=== PATIENT | male | born 1935 | race Caucasian/White ===

== ENCOUNTER 2021-04-17 15:53 | Observation (INO) | payer MEDICARE, BC ==
[2021-04-17] MEDS ORDERED: Sodium Chloride 0.9% 10 ML Syringe FLUSH PRN (16:20)
[2021-04-17 17:00] LABS: ANION GAP 7.7 meq/L (7-15)
--- NOTE | 2021-04-17 17:18 | EDM.PDOC ---
ED HPI GENERAL MEDICAL PROBLEM - General Chief Complaint: Syncope Stated Complaint: SYNCOPE Time Seen by Provider: 04/17/21 16:15 Source of Information: Reports: Patient History Limitations: Reports: No Limitations - History of Present Illness INITIAL COMMENTS - FREE TEXT/NARRATIVE: Patient left the house at 1 pm to go for a walk and decided to do some jogging. He states he did not have chest pain, or feel dizzy, but suddenly passed out. struck the back of his head head and was unconscious. He can to, felt nauseated and vomiting. decided to walk home, took him quite a bit to return home due to not feeling well. Is on plavix. Has a history of cardiac stent x 2. Is feeling better other than feeling weak. states he has been walking fine and making sense. made it home by 15:00. Has had his covid vaccination. Not around any sick contacts. no recent travel or illness. Has been eating and drinking normally. tetanus is up to date. Onset: Today, Sudden Duration: Minutes:, Resolved Prior to Arrival Associated Symptoms: Reports: Nausea/Vomiting, Syncope, Weakness Chest Pain Score (Numeric/FACES): 1 - Related Data Allergies Allergy/AdvReac Type Severity Reaction Status Date / Time No Known Allergies Allergy Verified 04/17/21 15:59 Home Meds: Home Meds Aspirin [Aspirin EC] 81 mg PO DAILY 04/17/21 [History] Clopidogrel [Plavix] 75 mg PO DAILY 04/17/21 [History] Ibuprofen/Diphenhydramine Cit [Ibuprofen PM Caplet] 1 tab PO BEDTIME 04/17/21 [History] Isosorbide Mononitrate [Isosorbide Mononitrate ER] 60 mg PO DAILY 04/17/21 [History] Losartan [Cozaar] 100 mg PO DAILY 04/17/21 [History] Non-Formulary Medication [NF Drug] 1 each PO BEDTIME 04/17/21 [History] Past Medical History HEENT History: Reports: Impaired Vision Cardiovascular History: Reports: Hypertension, Stents Musculoskeletal History: Reports: Arthritis, Back Pain, Chronic Psychiatric History: Reports: None - Past Surgical History Musculoskeletal Surgical History: Reports: Other (See Below) Other Musculoskeletal Surgeries/Procedures:: back surgery Social & Family History - Tobacco Use Tobacco Use Status *Q: Former Tobacco User Used Tobacco, but Quit: Yes Month/Year Tobacco Last Used: 1960 - Recreational Drug Use Recreational Drug Use: No Drug Use in Last 12 Months: No ED ROS GENERAL - Review of Systems Review Of Systems: See Below Constitutional: Reports: Weakness HEENT: Reports: No Symptoms. Denies: Ear Discharge, Eye Discharge, Nose Pain, Sinus Problem, Vertigo Respiratory: Reports: No Symptoms. Denies: Shortness of Breath, Wheezing, Cough Cardiovascular: Reports: Syncope. Denies: Chest Pain, Dyspnea on Exertion, Edema, Lightheadedness, Palpitations GI/Abdominal: Reports: Vomiting (once after the syncope. ). Denies: Abdominal Pain, Diarrhea : Reports: No Symptoms. Denies: Dysuria, Flank Pain, Frequency Skin: Reports: Wound (upper back abrasion) Neurological: Reports: Syncope, Weakness - Physical Exam Exam: See Below Exam Limited By: No Limitations General Appearance: Alert, WD/WN, No Apparent Distress Eye Exam: Bilateral Eye: EOMI, Normal Inspection, PERRL Ears: Normal External Exam, Normal Canal, Normal TMs Nose: Normal Inspection, Normal Mucosa, No Blood Throat/Mouth: Normal Inspection, Normal Lips, Normal Teeth, Normal Oropharynx, Normal Voice, No Airway Compromise Head Exam: Scalp Abrasions, Scalp Tenderness Neck: Normal Inspection, Supple, Non-Tender, Full Range of Motion. No: Tender Midline Respiratory/Chest: No Respiratory Distress, Lungs Clear Cardiovascular: Normal Peripheral Pulses, Bradycardia GI/Abdominal: Normal Bowel Sounds, Soft, Non-Tender Neuro Exam (Abbreviated): Alert, Oriented, CN II-XII Intact, Normal Cognition, No Motor/Sensory Deficits, Other (normal finger to nose with eyes closed. normal ZAC, normal oppostion of the thumb to all fingers bilaterally. 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 Normal heel to grover. NOrmal speech. ) Back Exam: Other (two abrasions on the upper back) Extremities: No Pedal Edema Psychiatric: Normal Affect, Normal Mood #1 Interpretation EKG Date: 04/17/21 Time: 16:36 Rhythm: NSR Rate (Beats/Min): 57 (bradycardia) [place]: Normal P-Wave: Present ST-T: Normal QT: Normal Comparison: NA - No Prior EKG Course - Vital Signs Last Recorded V/S: Last Vital Signs Temp 36.3 C 04/17/21 15:54 Pulse 64 04/17/21 15:54 Resp 20 04/17/21 15:54 BP 130/72 04/17/21 15:54 Pulse Ox 96 04/17/21 15:54 - Orders/Labs/Meds Orders: Active Orders 24 hr Category Date Time Status Admission Status [Patient Status] [ADT] Routine ADT 04/17/21 17:33 Ordered EKG Documentation Completion [RC] ASDIRECTED Care 04/17/21 16:19 Active Peripheral IV Care [RC] . DIRECTED Care 04/17/21 16:20 Active Cervical Spine wo Cont [CT] Stat Exams 04/17/21 16:18 Taken Chest 2V [CR] Stat Exams 04/17/21 16:18 Taken Head wo Cont [CT] Stat Exams 04/17/21 16:18 Taken Sodium Chloride 0.9% [Saline Flush] Med 04/17/21 16:20 Active 10 ml FLUSH ASDIRECTED PRN Peripheral IV Insertion Adult [OM.PC] Routine Oth 04/17/21 16:20 Ordered EKG 12 Lead [EK] Stat Ther 04/17/21 16:18 Ordered Medication Orders Sodium Chloride (Sodium Chloride 0.9% 10 Ml Syringe) 10 ml FLUSH ASDIRECTED PRN PRN Reason: Keep Vein Open Labs: Laboratory Tests 04/17/21 04/17/21 04/17/21 Range/Units 16:20 16:32 16:32 WBC 9.8 (4.0-10.2) K/uL RBC 4.41 (4.33-5.41) M/uL Hgb 13.6 (13.1-16.8) g/dL Hct 40.7 (39.0-49.0) % MCV 92.3 (84.0-98.0) fL MCH 30.8 (28.2-33.3) pg MCHC 33.4 (31.7-36.0) g/dL RDW 13.6 (11.2-14.1) % Plt Count 216 (150-350) K/uL Neut % (Auto) 79.6 (45.0-80.0) % Lymph % (Auto) 11.2 (10.0-50.0) % [place] % (Auto) 8.3 (2.0-14.0) % Eos % (Auto) 0.7 (0.0-5.0) % Baso % (Auto) 0.2 (0.0-2.0) % Neut # (Auto) 7.82 H (1.40-7.00) K/uL Lymph # (Auto) 1.10 (0.50-3.50) K/uL [place] # (Auto) 0.82 (0.00-1.00) K/uL Eos # (Auto) 0.07 (0.00-0.50) K/uL Baso # (Auto) 0.02 (0.00-0.20) K/uL D-Dimer, Quantitative 178 (0-400) ng/mL Sodium (136-145) mmol/L Potassium (3.5-5.1) mmol/L Chloride (98-107) mmol/L Carbon Dioxide (21.0-32.0) mmol/L Anion Gap (7-15) meq/L BUN (7-18) mg/dL Creatinine (0.51-1.17) mg/dL Est Cr Clr Drug Dosing mL/min Estimated GFR (MDRD) mL/min Glucose (70-99) mg/dL Calcium (8.5-10.1) mg/dL Total Bilirubin (0.2-1.0) mg/dL AST (15-37) U/L ALT (12-78) U/L Alkaline Phosphatase (46-116) IU/L Troponin I High Sens (<=76) ng/L Total Protein (6.4-8.2) g/dL Albumin (3.4-5.0) g/dL SARS-CoV-2 Ag (Rapid) Negative (NEGATIVE) 04/17/21 Range/Units 16:32 WBC (4.0-10.2) K/uL RBC (4.33-5.41) M/uL Hgb (13.1-16.8) g/dL Hct (39.0-49.0) % MCV (84.0-98.0) fL MCH (28.2-33.3) pg MCHC (31.7-36.0) g/dL RDW (11.2-14.1) % Plt Count (150-350) K/uL Neut % (Auto) (45.0-80.0) % Lymph % (Auto) (10.0-50.0) % [place] % (Auto) (2.0-14.0) % Eos % (Auto) (0.0-5.0) % Baso % (Auto) (0.0-2.0) % Neut # (Auto) (1.40-7.00) K/uL Lymph # (Auto) (0.50-3.50) K/uL [place] # (Auto) (0.00-1.00) K/uL Eos # (Auto) (0.00-0.50) K/uL Baso # (Auto) (0.00-0.20) K/uL D-Dimer, Quantitative (0-400) ng/mL Sodium 141 (136-145) mmol/L Potassium 4.3 (3.5-5.1) mmol/L Chloride 106 (98-107) mmol/L Carbon Dioxide 27.3 (21.0-32.0) mmol/L Anion Gap 7.7 (7-15) meq/L BUN 19 H (7-18) mg/dL Creatinine 1.21 H (0.51-1.17) mg/dL Est Cr Clr Drug Dosing 50.77 mL/min Estimated GFR (MDRD) 57 mL/min Glucose 123 H (70-99) mg/dL Calcium 8.4 L (8.5-10.1) mg/dL Total Bilirubin 1.0 (0.2-1.0) mg/dL AST 20 (15-37) U/L ALT 30 (12-78) U/L Alkaline Phosphatase 57 (46-116) IU/L Troponin I High Sens 26 (<=76) ng/L Total Protein 6.7 (6.4-8.2) g/dL Albumin 4.0 (3.4-5.0) g/dL SARS-CoV-2 Ag (Rapid) (NEGATIVE) Meds: Medications Generic Name Dose Route Start Last Admin Trade Name Freq PRN Reason Stop Dose Admin Sodium Chloride 10 ml 04/17/21 16:20 Sodium Chloride 0.9% 10 Ml Syringe FLUSH ASDIRECTED PRN Keep Vein Open Discontinued Medications Generic Name Dose Route Start Last Admin Trade Name Freq PRN Reason Stop Dose Admin Sodium Chloride 1,000 mls @ 999 mls/hr 04/17/21 16:20 Normal Saline IV 04/17/21 17:20 .BOLUS ONE - Radiology Interpretation Free Text/Narrative:: ct head without acute changes, ct c spine djd, 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 17:23. negative covid. troponin is negative. has an episode of bradycardia to [address]. awaiting ct results. Will offer to keep observation for cardiac monitoring for arrythmia, repeat troponin 04/17/21 17:35 Patient states he has had bradycardia in the past. Has had holter monitors, etc. None recently. usually has rate around 50. Has not had syncope without dizziness in the past, and has been years since syncope. Was not running or stressed at time of the incident. agrees to observation admission for neuro checks every 4, repeat troponin at 20:00 adn cardiac monitoring. he and his agree to this. Departure - Departure Time of Disposition: 17:32 Disposition: Refer to Observation Clinical Impression: Syncope - Discharge Information *PRESCRIPTION DRUG MONITORING PROGRAM REVIEWED*: Not Applicable *COPY OF PRESCRIPTION DRUG MONITORING REPORT IN PATIENT ERENDIRA: Not Applicable Referrals: PCP,None [Primary Care Provider] - Forms: ED Department Discharge Additional Instructions: use ER documentation as H & P for observation Sepsis Event Note (ED) - Evaluation Sepsis Screening Result: No Definite Risk - Focused Exam Vital Signs: Vital Signs Temp Pulse Resp BP Pulse Ox 04/17/21 15:54 36.3 C 64 20 130/72 96 - My Orders Last 24 Hours: My Active Orders 04/17/21 16:18 Cervical Spine wo Cont [CT] Stat Chest 2V [CR] Stat Head wo Cont [CT] Stat EKG 12 Lead [EK] Stat 04/17/21 16:19 EKG Documentation Completion [RC] ASDIRECTED 04/17/21 16:20 Peripheral IV Care [RC] . DIRECTED Sodium Chloride 0.9% [Saline Flush] 10 ml FLUSH ASDIRECTED PRN Peripheral IV Insertion Adult [OM.PC] Routine 04/17/21 17:33 Admission Status [Patient Status] [ADT] Routine - Assessment/Plan Last 24 Hours: My Active Orders 04/17/21 16:18 Cervical Spine wo Cont [CT] Stat Chest 2V [CR] Stat Head wo Cont [CT] Stat EKG 12 Lead [EK] Stat 04/17/21 16:19 EKG Documentation Completion [RC] ASDIRECTED 04/17/21 16:20 Peripheral IV Care [RC] . DIRECTED Sodium Chloride 0.9% [Saline Flush] 10 ml FLUSH ASDIRECTED PRN Peripheral IV Insertion Adult [OM.PC] Routine 04/17/21 17:33 Admission Status [Patient Status] [ADT] Routine
[2021-04-17] MEDS ORDERED: Ondansetron 4 MG Tab.DIS PO PRN (18:17)
[2021-04-17] MEDS ORDERED: Acetaminophen 325 MG Tab PO PRN (18:17)
[2021-04-17] MEDS: Sodium Chloride 0.9% 1,000 ML IV ONE (18:34)
[2021-04-17] MEDS ORDERED: [UNRECOGNIZED DRUG - OTHER] PO SCH (20:00)
[2021-04-17] MEDS ORDERED: DIPHENHYDRAMINE PO SCH (20:00)
[2021-04-17] MEDS ORDERED: IBUPROFEN PO SCH (20:00)
[2021-04-17] MEDS: Gabapentin 300 MG Cap PO ONE (22:32)
[2021-04-18] MEDS: Clopidogrel 75 MG Tab PO SCH (07:15)
[2021-04-18] MEDS: Aspirin 81 MG Tab.EC PO SCH (07:15)
[2021-04-18] MEDS: Isosorbide Mononitrate 60 MG Tab.ER PO SCH (07:15)
--- NOTE | 2021-04-18 07:43 | PCM.PN ---
- General Info Date of Service: 04/18/21 Admission Dx/Problem (Free Text): syncope Subjective Update: Patient presented to the Ed with a syncopal episode. He was evaluated in the Ed. No cause found. Kept overnight due to history of bradycardia. Walked the halls all evening at at brisk pace, no arrythmia, no pain no syncope. Slept well and was discussing discharge this morning when he had a non symptomatic 4 beat run of v tach. Concern for arrythmia causing his syncope yesterday. Sees cardiology at [place], last visit 06/2019. Note patient states he has been cutting his losartan in half for some time ( 50 mg daily). Feeling good this am. - Review of Systems General: Reports: No Symptoms HEENT: Reports: No Symptoms Pulmonary: Reports: No Symptoms Cardiovascular: Reports: No Symptoms Gastrointestinal: Reports: No Symptoms Genitourinary: Reports: No Symptoms Musculoskeletal: Reports: No Symptoms Skin: Reports: No Symptoms Neurological: Reports: No Symptoms Psychiatric: Reports: No Symptoms - Patient Data Vitals - Most Recent: Last Vital Signs Temp 35.8 C L 04/18/21 04:00 Pulse 51 L 04/18/21 04:00 Resp 18 04/18/21 04:00 BP 157/91 H 04/18/21 04:00 Pulse Ox 98 04/18/21 04:00 Weight - Most Recent: 88.451 kg I&O - Last 24 Hours: Intake & Output 04/17/21 04/18/21 04/18/21 22:59 06:59 14:59 Intake Total 1185 Balance 1185 Imaging Impressions - Last 24 Hours: Ct head no acute hemorrhage Ct c spine djd, no acute chest x-ray atelectasis decreased from previous. interpreted by radiology Lab Results Last 24 Hours: Laboratory Results - last 24 hr 04/17/21 04/17/21 04/17/21 Range/Units 16:20 16:32 16:32 WBC 9.8 (4.0-10.2) K/uL RBC 4.41 (4.33-5.41) M/uL Hgb 13.6 (13.1-16.8) g/dL Hct 40.7 (39.0-49.0) % MCV 92.3 (84.0-98.0) fL MCH 30.8 (28.2-33.3) pg MCHC 33.4 (31.7-36.0) g/dL RDW 13.6 (11.2-14.1) % Plt Count 216 (150-350) K/uL Neut % (Auto) 79.6 (45.0-80.0) % Lymph % (Auto) 11.2 (10.0-50.0) % [place] % (Auto) 8.3 (2.0-14.0) % Eos % (Auto) 0.7 (0.0-5.0) % Baso % (Auto) 0.2 (0.0-2.0) % Neut # (Auto) 7.82 H (1.40-7.00) K/uL Lymph # (Auto) 1.10 (0.50-3.50) K/uL [place] # (Auto) 0.82 (0.00-1.00) K/uL Eos # (Auto) 0.07 (0.00-0.50) K/uL Baso # (Auto) 0.02 (0.00-0.20) K/uL D-Dimer, Quantitative 178 (0-400) ng/mL Sodium (136-145) mmol/L Potassium (3.5-5.1) mmol/L Chloride (98-107) mmol/L Carbon Dioxide (21.0-32.0) mmol/L Anion Gap (7-15) meq/L BUN (7-18) mg/dL Creatinine (0.51-1.17) mg/dL Est Cr Clr Drug Dosing mL/min Estimated GFR (MDRD) mL/min Glucose (70-99) mg/dL Calcium (8.5-10.1) mg/dL Magnesium (1.8-2.4) mg/dL Total Bilirubin (0.2-1.0) mg/dL AST (15-37) U/L ALT (12-78) U/L Alkaline Phosphatase (46-116) IU/L Troponin I High Sens (<=76) ng/L Total Protein (6.4-8.2) g/dL Albumin (3.4-5.0) g/dL SARS-CoV-2 Ag (Rapid) Negative (NEGATIVE) 04/17/21 04/17/21 Range/Units 16:32 20:02 WBC (4.0-10.2) K/uL RBC (4.33-5.41) M/uL Hgb (13.1-16.8) g/dL Hct (39.0-49.0) % MCV (84.0-98.0) fL MCH (28.2-33.3) pg MCHC (31.7-36.0) g/dL RDW (11.2-14.1) % Plt Count (150-350) K/uL Neut % (Auto) (45.0-80.0) % Lymph % (Auto) (10.0-50.0) % [place] % (Auto) (2.0-14.0) % Eos % (Auto) (0.0-5.0) % Baso % (Auto) (0.0-2.0) % Neut # (Auto) (1.40-7.00) K/uL Lymph # (Auto) (0.50-3.50) K/uL [place] # (Auto) (0.00-1.00) K/uL Eos # (Auto) (0.00-0.50) K/uL Baso # (Auto) (0.00-0.20) K/uL D-Dimer, Quantitative (0-400) ng/mL Sodium 141 (136-145) mmol/L Potassium 4.3 (3.5-5.1) mmol/L Chloride 106 (98-107) mmol/L Carbon Dioxide 27.3 (21.0-32.0) mmol/L Anion Gap 7.7 (7-15) meq/L BUN 19 H (7-18) mg/dL Creatinine 1.21 H (0.51-1.17) mg/dL Est Cr Clr Drug Dosing 50.77 mL/min Estimated GFR (MDRD) 57 mL/min Glucose 123 H (70-99) mg/dL Calcium 8.4 L (8.5-10.1) mg/dL Magnesium 2.1 (1.8-2.4) mg/dL Total Bilirubin 1.0 (0.2-1.0) mg/dL AST 20 (15-37) U/L ALT 30 (12-78) U/L Alkaline Phosphatase 57 (46-116) IU/L Troponin I High Sens 26 65 (<=76) ng/L Total Protein 6.7 (6.4-8.2) g/dL Albumin 4.0 (3.4-5.0) g/dL SARS-CoV-2 Ag (Rapid) (NEGATIVE) Med Orders - Current: Current Medications Acetaminophen (Acetaminophen 325 Mg Tab) 650 mg PO Q4H PRN PRN Reason: Pain (Mild 1-3)/fever Aspirin (Aspirin 81 Mg Tab.Ec) 81 mg PO DAILY [facility] Last Admin: 04/18/21 07:15 Dose: 81 mg Documented by: Clopidogrel Bisulfate (Clopidogrel 75 Mg Tab) 75 mg PO DAILY [facility] Last Admin: 04/18/21 07:15 Dose: 75 mg Documented by: Isosorbide Mononitrate (Isosorbide Mononitrate 60 Mg Tab.Er) 60 mg PO DAILY [facility] Last Admin: 04/18/21 07:15 Dose: 60 mg Documented by: Losartan Potassium (Losartan 50 Mg Tab) 25 mg PO DAILY [facility] Ondansetron HCl (Ondansetron 4 Mg Tab.Dis) 4 mg PO Q4H PRN PRN Reason: Nausea/Vomiting Sodium Chloride (Sodium Chloride 0.9% 10 Ml Syringe) 10 ml FLUSH ASDIRECTED PRN PRN Reason: Keep Vein Open Discontinued Medications Gabapentin (Gabapentin 300 Mg Cap) 300 mg PO ONETIME ONE Stop: 04/17/21 22:17 Last Admin: 04/17/21 22:32 Dose: 300 mg Documented by: Sodium Chloride (Normal Saline) 1,000 mls @ 999 mls/hr IV .BOLUS ONE Stop: 04/17/21 17:20 Last Admin: 04/17/21 18:34 Dose: 999 mls/hr Documented by: Non-Formulary Medication (Ibuprofen/Diphenhydramine Cit [Ibuprofen Pm Caplet]) 1 tab PO BEDTIME RACHAEL - Exam Quality Assessment: DVT Prophylaxis (plavix) General: Alert, Oriented, Cooperative, No Acute Distress HEENT: Pupils Equal, Pupils Reactive Neck: Supple Lungs: Clear to Auscultation, Normal Respiratory Effort Cardiovascular: Regular Rate, Regular Rhythm GI/Abdominal Exam: Normal Bowel Sounds, Soft, Non-Tender Back Exam: Normal Inspection, Full Range of Motion Extremities: Normal Inspection, Normal Range of Motion, No Pedal Edema Skin: Warm Neurological: No New Focal Deficit Psy/Mental Status: Alert, Normal Affect, Normal Mood - Patient Data Lab Results Last 24 hrs: Laboratory Results - last 24 hr 04/17/21 04/17/21 04/17/21 Range/Units 16:20 16:32 16:32 WBC 9.8 (4.0-10.2) K/uL RBC 4.41 (4.33-5.41) M/uL Hgb 13.6 (13.1-16.8) g/dL Hct 40.7 (39.0-49.0) % MCV 92.3 (84.0-98.0) fL MCH 30.8 (28.2-33.3) pg MCHC 33.4 (31.7-36.0) g/dL RDW 13.6 (11.2-14.1) % Plt Count 216 (150-350) K/uL Neut % (Auto) 79.6 (45.0-80.0) % Lymph % (Auto) 11.2 (10.0-50.0) % [place] % (Auto) 8.3 (2.0-14.0) % Eos % (Auto) 0.7 (0.0-5.0) % Baso % (Auto) 0.2 (0.0-2.0) % Neut # (Auto) 7.82 H (1.40-7.00) K/uL Lymph # (Auto) 1.10 (0.50-3.50) K/uL [place] # (Auto) 0.82 (0.00-1.00) K/uL Eos # (Auto) 0.07 (0.00-0.50) K/uL Baso # (Auto) 0.02 (0.00-0.20) K/uL D-Dimer, Quantitative 178 (0-400) ng/mL Sodium (136-145) mmol/L Potassium (3.5-5.1) mmol/L Chloride (98-107) mmol/L Carbon Dioxide (21.0-32.0) mmol/L Anion Gap (7-15) meq/L BUN (7-18) mg/dL Creatinine (0.51-1.17) mg/dL Est Cr Clr Drug Dosing mL/min Estimated GFR (MDRD) mL/min Glucose (70-99) mg/dL Calcium (8.5-10.1) mg/dL Magnesium (1.8-2.4) mg/dL Total Bilirubin (0.2-1.0) mg/dL AST (15-37) U/L ALT (12-78) U/L Alkaline Phosphatase (46-116) IU/L Troponin I High Sens (<=76) ng/L Total Protein (6.4-8.2) g/dL Albumin (3.4-5.0) g/dL SARS-CoV-2 Ag (Rapid) Negative (NEGATIVE) 04/17/21 04/17/21 Range/Units 16:32 20:02 WBC (4.0-10.2) K/uL RBC (4.33-5.41) M/uL Hgb (13.1-16.8) g/dL Hct (39.0-49.0) % MCV (84.0-98.0) fL MCH (28.2-33.3) pg MCHC (31.7-36.0) g/dL RDW (11.2-14.1) % Plt Count (150-350) K/uL Neut % (Auto) (45.0-80.0) % Lymph % (Auto) (10.0-50.0) % [place] % (Auto) (2.0-14.0) % Eos % (Auto) (0.0-5.0) % Baso % (Auto) (0.0-2.0) % Neut # (Auto) (1.40-7.00) K/uL Lymph # (Auto) (0.50-3.50) K/uL [place] # (Auto) (0.00-1.00) K/uL Eos # (Auto) (0.00-0.50) K/uL Baso # (Auto) (0.00-0.20) K/uL D-Dimer, Quantitative (0-400) ng/mL Sodium 141 (136-145) mmol/L Potassium 4.3 (3.5-5.1) mmol/L Chloride 106 (98-107) mmol/L Carbon Dioxide 27.3 (21.0-32.0) mmol/L Anion Gap 7.7 (7-15) meq/L BUN 19 H (7-18) mg/dL Creatinine 1.21 H (0.51-1.17) mg/dL Est Cr Clr Drug Dosing 50.77 mL/min Estimated GFR (MDRD) 57 mL/min Glucose 123 H (70-99) mg/dL Calcium 8.4 L (8.5-10.1) mg/dL Magnesium 2.1 (1.8-2.4) mg/dL Total Bilirubin 1.0 (0.2-1.0) mg/dL AST 20 (15-37) U/L ALT 30 (12-78) U/L Alkaline Phosphatase 57 (46-116) IU/L Troponin I High Sens 26 65 (<=76) ng/L Total Protein 6.7 (6.4-8.2) g/dL Albumin 4.0 (3.4-5.0) g/dL SARS-CoV-2 Ag (Rapid) (NEGATIVE) Result Diagrams: 04/17/21 16:32 04/17/21 16:32 Sepsis Event Note - Evaluation Sepsis Screening Result: No Definite Risk - Focused Exam Vital Signs: Vital Signs Temp Pulse Resp BP Pulse Ox 04/18/21 04:00 35.8 C L 51 L 18 157/91 H 98 04/18/21 00:00 37.0 C 52 L 14 149/84 H 97 - Problem List & Annotations (1) Syncope SNOMED Code(s): 611757893 Code(s): R55 - SYNCOPE AND COLLAPSE Status: Acute Priority: High Current Visit: Yes Onset Date: ~04/17/21 Qualifiers: Syncope type: unspecified Qualified Code(s): R55 - Syncope and collapse Annotation/Comment:: witha new documented 4 beat run of ventricular tachycardia today ( 04/18/2021). needs cardiology assesment and transfer (2) Bradycardia SNOMED Code(s): 14750567 Code(s): R00.1 - BRADYCARDIA, UNSPECIFIED Status: Acute Priority: Medium Current Visit: Yes Annotation/Comment:: years - Problem List Review Problem List Initiated/Reviewed/Updated: Yes - My Orders Last 24 Hours: My Active Orders 04/17/21 16:18 Cervical Spine wo Cont [CT] Stat Chest 2V [CR] Stat Head wo Cont [CT] Stat 04/17/21 16:20 Sodium Chloride 0.9% [Saline Flush] 10 ml FLUSH ASDIRECTED PRN Peripheral IV Insertion Adult [OM.PC] Routine 04/17/21 17:33 Admission Status [Patient Status] [ADT] Routine 04/17/21 18:17 Ambulate [RC] ASDIRECTED Cardiac Monitoring [RC] Q2HR Height and Weight [RC] DAILY May Shower [RC] ASDIRECTED Oxygen Therapy [RC] PRN Up ad [place] [RC] ASDIRECTED VTE/DVT Education [RC] PER UNIT ROUTINE Vital Signs [RC] Q4HR Acetaminophen [TylenoL] 650 mg PO Q4H PRN Ondansetron [Zofran ODT] 4 mg PO Q4H PRN Resuscitation Status Routine 04/18/21 Breakfast Regular Diet [DIET] 04/18/21 08:00 Aspirin [Halfprin] 81 mg PO DAILY Clopidogrel [Plavix] 75 mg PO DAILY Isosorbide Mononitrate [Imdur] 60 mg PO DAILY Losartan [Cozaar] 25 mg PO DAILY - Assessment Assessment:: syncope with bradycardia and new documented 4 beat run of ventricular tachycardia. Needs further evaluation. No ability for holter monitor or cardiology here. - Plan Plan:: contacted [facility] at 7:20 am. discussed patient with Dr. Campos whom has seen him in the remote past. Needs cardiology evaluation, transfer. Beds are limited. Patient is stable. Will discuss with hospitalist and transfer for cardiology evalution when bed is available. No medications suggested per Dr. Campos at this time. Accepted for transfer later today by Dr. Hurley at 7:50
[2021-04-18] MEDS: Losartan 50 MG Tab PO SCH (07:56)
== END 2021-04-18 11:55 ==
LOC: LL.ED 15:53 → LL.MS 17:44
PROVIDERS: ADMIT Physician Assistant; ATTEND Physician Assistant
DX: R55 Syncope and collapse (principal); S09.90XA Unspecified injury of head, initial encounter; R00.1 Bradycardia, unspecified; I10 Essential (primary) hypertension; Z20.822 Contact with and (suspected) exposure to COVID-19; Z95.828 Presence of other vascular implants and grafts; Z79.82 Long term (current) use of aspirin; Z79.899 Other long term (current) drug therapy; Z79.01 Long term (current) use of anticoagulants; Z87.891 Personal history of nicotine dependence; W19.XXXA Unspecified fall, initial encounter
CPT/HCPCS: 36415; 70450; 71046; 72125; 80053; 83735; 84484; 85025; 85379; 87426; 93005; 99217; 99220; 99285-25; A9270-GY; G0378; J7030

== ENCOUNTER 2023-07-04 18:42 | Emergency (ER) | payer BC, MEDICARE, OTHER ==
[2023-07-04 19:11] LABS: APPEARANCE,URINE SLIGHTLY CLOUDY; BILIRUBIN,URINE NEGATIVE (NEGATIVE); COLOR,URINE YELLOW; GLUCOSE,URINE NEGATIVE (NEGATIVE); KETONES,URINE NEGATIVE (NEGATIVE); LEUKOCYTE ESTERASE,URINE NEGATIVE (NEGATIVE); NITRITE,URINE NEGATIVE (NEGATIVE); OCCULT BLOOD,URINE TRACE-INTACT (NEGATIVE); PROTEIN,URINE NEGATIVE (NEGATIVE); UROBILINOGEN,URINE 0.2 E.U./dL (0.2-1.0)
[2023-07-04 19:15] LABS: BASOPHILS ABSOLUTE AUTO 0.02 K/uL (0.00-0.20); BASOPHILS PERCENT AUTO 0.2 % (0.0-2.0); EOSINOPHILS ABSOLUTE AUTO 0.05 K/uL (0.00-0.50); EOSINOPHILS PERCENT AUTO 0.6 % (0.0-5.0); HEMATOCRIT 41.5 % (39.0-49.0); HEMOGLOBIN 13.9 g/dL (13.1-16.8); LYMPHOCYTES ABSOLUTE AUTO 0.93 K/uL (0.50-3.50); LYMPHOCYTES PERCENT AUTO 11.2 % (10.0-50.0); MEAN CORPUSCULAR HEMOGLOBIN 31.5 pg (28.2-33.3); MEAN CORPUSCULAR HGB CONC 33.5 g/dL (31.7-36.0); MEAN CORPUSCULAR VOLUME 94.1 fL (84.0-98.0); MONOCYTES ABSOLUTE AUTO 1.27 K/uL (0.00-1.00); MONOCYTES PERCENT AUTO 15.3 % (2.0-14.0); NEUTROPHILS ABSOLUTE AUTO 6.05 K/uL (1.40-7.00); NEUTROPHILS PERCENT AUTO 72.7 % (45.0-80.0); PLATELET COUNT,PLT 183 K/uL (150-350); RED BLOOD CELL COUNT 4.41 M/uL (4.33-5.41); RED CELL DISTRIBUTION WIDTH 13.2 % (11.2-14.1); WHITE BLOOD CELL COUNT,WBC 8.3 K/uL (4.0-10.2)
[2023-07-04 19:18] LABS: BACTERIA,URINE RARE /HPF (NONE TO FEW); EPITHELIAL CELLS,URINE RARE /LPF; RBC,URINE 0-5 /HPF; WBC,URINE 0-5 /HPF
[2023-07-04 19:30] LABS: PROTHROMBIN TIME 10.1 SEC (9.0-11.1)
[2023-07-04 19:42] LABS: ALANINE AMINOTRANSFERASE,ALT 31 U/L (12-78); ALBUMIN 4.1 g/dL (3.4-5.0); ALKALINE PHOSPHATASE 58 IU/L (46-116); ASPARTATE AMNIOTRANSFERASE,AST 16 U/L (15-37); BILIRUBIN TOTAL 0.9 mg/dL (0.2-1.0); BLOOD UREA NITROGEN,BUN 10 mg/dL (7-18); CALCIUM 8.7 mg/dL (8.5-10.1); CARBON DIOXIDE,CO2 26.9 mmol/L (21.0-32.0); CHLORIDE,CL 98 mmol/L (98-107); CREATININE 1.11 mg/dL (0.51-1.17); GLUCOSE RANDOM 97 mg/dL (70-99); POTASSIUM,K 4.2 mmol/L (3.5-5.1); PRO B-TYPE NATRIUR PEPT,BNPPRO 244 pg/mL (0-125); PROTEIN TOTAL,TP 7.1 g/dL (6.4-8.2); SODIUM,NA 135 mmol/L (136-145)
[2023-07-04 19:43] LABS: INFLUENZA A NAA NEGATIVE (NEGATIVE); INFLUENZA B NAA NEGATIVE (NEGATIVE); RESPIRATORY SYNCYTIAL VIR NAA NEGATIVE (NEGATIVE)
[2023-07-04 19:48] LABS: ANION GAP 14.3 meq/L (7-15); ESTIMATED GFR 65 mL/min (>=60)
[2023-07-04 19:50] LABS: CORONAVIRUS COVID-19 NAA POSITIVE (NEGATIVE)
[2023-07-04 20:09] LABS: LACTIC ACID 1.1 mmol/L (0.4-2.0)
[2023-07-04] MEDS: Acetaminophen 325 MG Tab PO ONE (20:35)
[2023-07-05] MEDS ORDERED: Sodium Chloride 0.9% 10 ML Syringe FLUSH PRN (03:44)
== END 2023-07-04 20:55 | disposition home or self-care (01) ==
LOC: LL.ED 18:42
DX: U07.1 COVID-19 (principal); I10 Essential (primary) hypertension; Z79.82 Long term (current) use of aspirin; Z79.899 Other long term (current) drug therapy
CPT/HCPCS: 0241U; 36415; 71046; 80053; 81001; 83605; 83880; 84484; 85025; 85610; 87040; 93005; 99284; A9270

== ENCOUNTER 2024-11-30 06:48 | Emergency (ER) | payer MEDICARE, OTHER ==
[2024-11-30] MEDS: Ketorolac 15 MG/ML SDV IVPUSH ONE (07:13)
[2024-11-30] MEDS: Prochlorperazine 10 MG/2 ML SDV IVPUSH ONE (07:17)
[2024-11-30] MEDS: Sodium Chloride 0.9% 10 ML Syringe FLUSH PRN (07:17)
[2024-11-30] MEDS: diphenhydrAMINE 50 MG/ML SDV IVPUSH ONE (07:21)
[2024-11-30] MEDS: Lactated Ringers 500 ML IV ONE (07:36)
[2024-11-30 08:00] LABS: BASOPHILS ABSOLUTE AUTO 0.04 K/uL (0.00-0.20); BASOPHILS PERCENT AUTO 0.7 % (0.0-2.0); EOSINOPHILS ABSOLUTE AUTO 0.21 K/uL (0.00-0.50); EOSINOPHILS PERCENT AUTO 3.5 % (0.0-5.0); HEMOGLOBIN 13.7 g/dL (13.1-16.8); IMMATURE GRAN ABSOLUTE AUTO 0.01 10^3/uL (0.00-0.04); IMMATURE GRAN PERCENT AUTO 0.2 % (0.0-0.4); LYMPHOCYTES ABSOLUTE AUTO 1.19 K/uL (0.50-3.50); LYMPHOCYTES PERCENT AUTO 19.8 % (10.0-50.0); MEAN CORPUSCULAR HEMOGLOBIN 30.5 pg (28.2-33.3); MEAN CORPUSCULAR HGB CONC 33.4 g/dL (31.7-36.0); MEAN CORPUSCULAR VOLUME 91.3 fL (84.0-98.0); MONOCYTES ABSOLUTE AUTO 1.11 K/uL (0.00-1.00); MONOCYTES PERCENT AUTO 18.4 % (2.0-14.0); NEUTROPHILS ABSOLUTE AUTO 3.46 K/uL (1.40-7.00); NEUTROPHILS PERCENT AUTO 57.4 % (45.0-80.0); PLATELET COUNT,PLT 207 K/uL (150-350); RED BLOOD CELL COUNT 4.49 M/uL (4.33-5.41); RED CELL DISTRIBUTION WIDTH 12.7 % (11.2-14.1)
[2024-11-30 08:09] LABS: PROTHROMBIN TIME 10.5 SEC (9.0-11.1)
[2024-11-30 08:16] LABS: ALBUMIN 3.6 g/dL (3.4-5.0); ANION GAP 8.6 meq/L (7-15); BILIRUBIN TOTAL 0.8 mg/dL (0.2-1.0); CALCIUM 8.5 mg/dL (8.5-10.1); CARBON DIOXIDE,CO2 28.5 mmol/L (21.0-32.0); CREATININE 0.9 mg/dL (0.51-1.17); EST CRCL DRUG DOSING (CG) 63.47 mL/min; MAGNESIUM 1.9 mg/dL (1.8-2.4); POTASSIUM,K 4.1 mmol/L (3.5-5.1); PROTEIN TOTAL,TP 7.2 g/dL (6.4-8.2)
[2024-11-30] MEDS: LORazepam 2 MG/ML SDV IVPUSH ONE (08:34)
[2024-11-30] MEDS: Sodium Chloride 1 GM Tab PO ONE ×2 (08:34→09:11)
== END 2024-11-30 10:13 | disposition home or self-care (01) ==
LOC: LL.ED 06:48
DX: G43.809 Other migraine, not intractable, without status migrainosus (principal); E87.1 Hypo-osmolality and hyponatremia; F43.20 Adjustment disorder, unspecified; I10 Essential (primary) hypertension; Z88.8 Allergy status to other drugs, medicaments and biological substances; Z79.82 Long term (current) use of aspirin; Z79.899 Other long term (current) drug therapy
CPT/HCPCS: 36415; 80053; 83735; 85025; 85610; 96361; 96374; 96375; 99284-25; A9270-GY; J0780; J1200; J1885; J2060; J7120